=== PATIENT | female | born 1945 | race Caucasian/White ===

== ENCOUNTER → 2018-03-20 | Outpatient (CLI) | payer MEDICARE ==
[~2018-03-20] MED LIST: EXEM25TA PO; LETR2.5T2 PO; LOSA25TA14 PO; OMEP40CA2 PO; SERT50TA PO; VITA10002 PO; VITAD1000T PO
[2018-03-20 12:03] LABS: HEMATOCRIT 41.8 % (36.0-47.0); HEMOGLOBIN 13.5 g/dl (12.0-15.5); MEAN CORPUSCULAR HEMOGLOBIN 27.8 pg (27.0-33.0); MEAN CORPUSCULAR HGB CONC 32.3 g/dl (32.0-36.5); MEAN CORPUSCULAR VOLUME 86.2 fl (80.0-96.0); PLATELET COUNT, AUTOMATED 260 10^3/uL (150-450); RED BLOOD COUNT 4.85 10^6/uL (4.00-5.40); WHITE BLOOD COUNT 6.2 10^3/uL (4.0-10.0)
[2018-03-20 12:17] LABS: ALBUMIN 3.7 GM/DL (3.2-5.2); ALT/SGPT 24 U/L (12-78); BILIRUBIN,TOTAL 0.5 MG/DL (0.2-1.0); BLOOD UREA NITROGEN 12 MG/DL (7-18); CALCIUM LEVEL 8.9 MG/DL (8.8-10.2); CARBON DIOXIDE LEVEL 27 MEQ/L (21-32); CHLORIDE LEVEL 107 MEQ/L (98-107); CHOLESTEROL LEVEL 216 MG/DL (<200); CREATININE FOR GFR 0.81 MG/DL (0.55-1.30); GLOMERULAR FILTRATION RATE > 60.0 (>39); GLUCOSE, FASTING 88 MG/DL (70-100); HDL CHOLESTEROL 54 MG/DL (>40); LDL CHOLESTEROL 132 MG/DL (<100); NON-HDL-C 162 MG/DL; POTASSIUM SERUM 4.6 MEQ/L (3.5-5.1); SODIUM LEVEL 140 MEQ/L (136-145); TOTAL PROTEIN 6.7 GM/DL (6.4-8.2); TRIGLYCERIDES LEVEL 150 MG/DL (<150)
[2018-03-20 12:21] LABS: TOTAL 25(OH) VITAMIN D 22.8 NG/ML (30.0-100.0); VITAMIN B12 LEVEL 883 PG/ML (247-911)
== END ==
LOC: M WUC 09:05
PROVIDERS: ATTEND Nurse Practitioner Adult Health
DX: Z00.00 Encounter for general adult medical examination without abnormal findings (principal); Z98.84 Bariatric surgery status; I10 Essential (primary) hypertension; E55.9 Vitamin D deficiency, unspecified; Z79.899 Other long term (current) drug therapy

== ENCOUNTER → 2018-05-14 | Outpatient (CLI) | payer MEDICARE ==
--- NOTE | 2018-05-14 09:25 | REP ---
CHEST WALL ULTRASOUND: 05/14/2018. Clinical history: Chest wall swelling, status post bilateral mastectomy. Soft tissue chest wall evaluation just inferior to the clavicle where she noted swelling shows normal heterogeneous soft tissues without discrete mass, cyst, architectural distortion or skin thickening in the region below the clavicle. Scanning over the chest wall inferior to the axilla, there is a 9.8 x 6.5 x 3.6 mm lymph node with morphologic normal appearance of the hyperechoic fatty center and hypoechoic periphery. There are no other findings. Impression: 1. There is no soft tissue mass or other sonographic abnormality inferior to the clavicle in the region where the patient notes some swelling. 2. There is a 9.8 x 6.5 x 3.6 mm lymph node with normal sonographic morphology and blood flow from the hilus. No other finding. Electronically Signed by Ta Gauthier MD 05/14/2018 08:33 P
== END ==
LOC: M RAD 07:32
PROVIDERS: ATTEND Internal Medicine Medical Oncology
DX: R22.2 Localized swelling, mass and lump, trunk (principal); Z90.13 Acquired absence of bilateral breasts and nipples

== ENCOUNTER 2018-07-02 07:51 | Day surgery (SDC) | payer MEDICARE ==
[~2018-07-02] VITALS: Ht 162.6 cm; Wt 76.6 kg
[~2018-07-02 07:51] MED LIST changes: +NS 1,000 ML IV ONE; +SERT-141 PO; -SERT50TA PO
[2018-07-02] MEDS ORDERED: PROPOFOL 500 MG/50 ML VIAL As Ordered ONE (10:01)
[2018-07-02] MEDS ORDERED: LIDOCAINE 2% INJ 100 MG/5 ML SDV (FOR ANES.) As Ordered ONE (10:01)
[2018-07-02] MEDS ORDERED: fentaNYL 100 MCG/2 ML INJECTION (J3010) As Ordered ONE (10:01)
--- NOTE | 2018-07-02 10:04 | ROOR ---
Patient Name: Brittany Barrientos Procedure Date: 07/02/2018 9:14 AM Date of : 1945 Age: 73 Room: [facility] Gender: Female Note Status: Finalized Procedure: Upper GI endoscopy Indications: Surveillance for malignancy due to personal history of Alvarez's esophagus Providers: Miguelito Stevenson MD Referring MD: Arti RICKS NP Requesting Provider: Medicines: Monitored Anesthesia Care Complications: No immediate complications. Procedure: Pre-Anesthesia Assessment: - Prior to the procedure, a History and Physical was performed, and patient medications and allergies were reviewed. The patient is competent. The risks and benefits of the procedure and the sedation options and risks were discussed with the patient. All questions were answered and informed consent was obtained. Patient identification and proposed procedure were verified by the physician, the nurse and the anesthesiologist in the procedure room. Mental Status Examination: alert and oriented. Airway Examination: normal oropharyngeal airway and neck mobility. Respiratory Examination: clear to auscultation. CV Examination: normal. Prophylactic Antibiotics: The patient does not require prophylactic antibiotics. Prior Anticoagulants: The patient has taken no previous anticoagulant or antiplatelet agents. ASA Grade Assessment: II - A patient with mild systemic disease. After reviewing the risks and benefits, the patient was deemed in satisfactory condition to undergo the procedure. The anesthesia plan was to use monitored anesthesia care (MAC). Immediately prior to administration of medications, the patient was re-assessed for adequacy to receive sedatives. The heart rate, respiratory rate, oxygen saturations, blood pressure, adequacy of pulmonary ventilation, and response to care were monitored throughout the procedure. The physical status of the patient was re-assessed after the procedure. The Endoscope was introduced through the mouth, and advanced to the efferent jejunal loop. The upper GI endoscopy was accomplished without difficulty. The patient tolerated the procedure well. Findings: Two tongues of salmon-colored mucosa were present from 35 to 37 cm. The maximum longitudinal extent of these esophageal mucosal changes was 2 cm in length. Biopsies were taken with a cold forceps for histology. Verification of patient identification for the specimen was done by the physician and nurse using the patient's name, date and medical record number. 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 The gastrojejunal anastomosis was characterized by healthy appearing mucosa. This was traversed. The jejunojejunal anastomosis was characterized by healthy appearing mucosa. The xfdokkxa-lw-tdrlrlm limb was not examined as it could not be found. Patchy mild inflammation characterized by erythema and granularity was found in the gastric fundus. Biopsies were taken with a cold forceps for Helicobacter pylori testing. The examined jejunum was normal. Impression: - Proctor-colored mucosa suspicious for short-segment Alvarez's esophagus. Biopsied. - Malcom-en-Y gastrojejunostomy with gastrojejunal anastomosis characterized by healthy appearing mucosa. - Gastritis. Biopsied. - Normal examined jejunum. Recommendation: - Patient has a contact number available for emergencies. The signs and symptoms of potential delayed complications were discussed with the patient. Return to normal activities tomorrow. Written discharge instructions were provided to the patient. - Resume previous diet. - Continue present medications. 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 - Follow an antireflux regimen. - Await pathology results. - Repeat upper endoscopy in 3 years for surveillance. - Based on the biopsy results you will receive a phone call from GI clinic in 2-3 weeks to review the pathology results AND/OR your results will be faxed to your Primary care physician. - Return to primary care physician. Miguelito Stevenson MD Miguelito Stevenson MD 07/02/2018 10:04:27 AM Electronically signed by Miguelito Stevenson MD Number of Addenda: 0 Note Initiated On: 07/02/2018 9:14 AM Estimated Blood Loss: Estimated blood loss was minimal.
[2018-07-02 10:19] VITALS: BP 132/72
--- NOTE | 2018-07-02 11:13 | ROOR ---
Patient Name: Brittany Barrientos Procedure Date: 07/02/2018 9:14 AM Date of : 1945 Age: 73 Room: [facility] Gender: Female Note Status: Finalized Procedure: Colonoscopy Indications: Suspected Crohn's disease of the small bowel and colon Providers: Miguelito Stevenson MD Referring MD: Arti RICKS NP Requesting Provider: Medicines: Monitored Anesthesia Care Complications: No immediate complications. Procedure: Pre-Anesthesia Assessment: - Prior to the procedure, a History and Physical was performed, and patient medications and allergies were reviewed. The patient is competent. The risks and benefits of the procedure and the sedation options and risks were discussed with the patient. All questions were answered and informed consent was obtained. Patient identification and proposed procedure were verified by the physician, the nurse and the anesthesiologist in the procedure room. Mental Status Examination: alert and oriented. Airway Examination: normal oropharyngeal airway and neck mobility. Respiratory Examination: clear to auscultation. CV Examination: normal. Prophylactic Antibiotics: The patient does not require prophylactic antibiotics. Prior Anticoagulants: The patient has taken no previous anticoagulant or antiplatelet agents. ASA Grade Assessment: II - A patient with mild systemic disease. After reviewing the risks and benefits, the patient was deemed in satisfactory condition to undergo the procedure. The anesthesia plan was to use monitored anesthesia care (MAC). Immediately prior to administration of medications, the patient was re-assessed for adequacy to receive sedatives. The heart rate, respiratory rate, oxygen saturations, blood pressure, adequacy of pulmonary ventilation, and response to care were monitored throughout the procedure. The physical status of the patient was re-assessed after the procedure. The Colonoscope was introduced through the anus and advanced to the terminal ileum, with identification of the appendiceal orifice and IC valve. The colonoscopy was performed without difficulty. The patient tolerated the procedure well. The quality of the bowel preparation was good. The terminal ileum, ileocecal valve, appendiceal orifice, and rectum were photographed. Scope insertion time was 3 minutes. Scope withdrawal time was 9 minutes. The total duration of the procedure was 12 minutes. Findings: The perianal and digital rectal examinations were normal. The terminal ileum contained a few eight mm ulcers. No bleeding was present. No stigmata of recent bleeding were seen. Biopsies were taken with a cold forceps for histology. Verification of patient identification for the specimen was done by the physician and nurse using the patient's name, date and medical record number. Estimated blood loss was minimal. Four sessile polyps were found in the ascending colon. The polyps were 4 to 6 mm in size. These polyps were removed with a cold snare. Resection and retrieval were complete. Non-bleeding external and internal hemorrhoids were found during retroflexion. The hemorrhoids were medium-sized. Normal mucosa was found in the entire colon. Impression: - A few ulcers in the terminal ileum. Biopsied. - Four 4 to 6 mm polyps in the ascending colon, removed with a cold snare. Resected and retrieved. - Non-bleeding external and internal hemorrhoids. - Normal mucosa in the entire examined colon. Recommendation: - Patient has a contact number available for emergencies. The signs and symptoms of potential delayed complications were discussed with the patient. Return to normal activities tomorrow. Written discharge instructions were provided to the patient. - Resume previous diet. - Continue present medications. - Await pathology results. - Repeat colonoscopy in 3 - 5 years for surveillance based on pathology results. - Based on the biopsy results you will receive a phone call from GI clinic in 2-3 weeks to review the pathology results AND/OR your results will be faxed to your Primary care physician. - Return to primary care physician. Miguelito Stevenson MD Miguelito Stevenson MD 07/02/2018 11:13:09 AM Electronically signed by Miguelito Stevenson MD Number of Addenda: 0 Note Initiated On: 07/02/2018 9:14 AM Estimated Blood Loss: Estimated blood loss was minimal.
== END 2018-07-02 10:40 | disposition home or self-care (01) ==
LOC: M OPP 07:51
PROVIDERS: ATTEND Internal Medicine Gastroenterology
DX: K63.3 Ulcer of intestine (principal); D12.2 Benign neoplasm of ascending colon; K64.8 Other hemorrhoids; K29.70 Gastritis, unspecified, without bleeding; Z98.0 Intestinal bypass and anastomosis status; K22.70 Barrett's esophagus without dysplasia; Z79.899 Other long term (current) drug therapy; Z87.891 Personal history of nicotine dependence; Z88.5 Allergy status to narcotic agent; Z88.8 Allergy status to other drugs, medicaments and biological substances; Z91.048 Other nonmedicinal substance allergy status
CPT/HCPCS: 43239; 45380; 45385; 88305; J3010

== ENCOUNTER → 2018-07-19 | Outpatient (CLI) | payer MEDICARE ==
[~2018-07-19] MED LIST changes: -NS 1,000 ML IV ONE
--- NOTE | 2018-08-02 10:22 | DEXA ---
AP SPINE L1 - L4 1.189 0.0 1.7 LT FEMUR TOTAL Bilateral hip replacement. LT NECK RT FEMUR TOTAL RT NECK TOTAL BODY TOTAL LEFT FOREARM RADIUS 33% 0.646 -2.6 0.1 COMMENTS: Normal bone densitometry of the spine. 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 FOLLOW-UP: Recommendation for the next bone density exam: 2 years. KENNY
== END ==
LOC: M WHC 13:54
PROVIDERS: ATTEND Internal Medicine Medical Oncology
DX: M81.0 Age-related osteoporosis without current pathological fracture (principal)

== ENCOUNTER → 2019-10-23 | Outpatient (CLI) | payer MEDICARE ==
[~2019-10-23] MED LIST changes: +BUPR150T3 PO; +CHOL100029 PO; +CYAN100049 PO; +D 10TAB2 PO; +FLUT1BLS2 PO; +GABA-843 PO; +LOSA50TA88 PO; -OMEP40CA2 PO; +OMEP40CA97 PO; -VITA10002 PO; +VITA100020 PO; -VITAD1000T PO
--- NOTE | 2019-11-27 08:10 | REP ---
RIGHT RIB SERIES WITH PA VIEW OF THE CHEST COMPARISON: None. FINDINGS: The frontal view of the chest shows the lung ralph to be clear. The heart is not enlarged and the pleural angles are sharp. Multiple views of the right ribs show no evidence of an acute fracture or destructive osseous lesion. IMPRESSION: Negative right rib series. MTDD
--- NOTE | 2019-11-27 08:11 | REP ---
ULTRASOUND OF THE RIGHT CHEST WALL FOR PAIN Delay in reporting results from hospital computer system malfunction from malware/ ransomware. Patient had breast cancer three years ago and has had bilateral mastectomies. She complains of two areas of pain in the right chest wall along the mastectomy incision line. One area of pain is along the lateral chest wall over the ribs and the second area is anteromedial to the incision near the sternum. In the lateral chest wall a small lymph node measuring 7.5 x 3.7 x 5.1 mm is noted medial to the area of pain. This lymph node is normal size. No abnormality is identified in the area of pain. In the area anteriomedial to the incision near the sternum a normal size lymph node measuring 3.6 x 3.5 x 3.5 mm is noted. that is slightly lateral to the area of pain. This lymph node is normal size. No abnormality is identified in the area of pain. A subcutaneous vascular structure is incidentally identified. IMPRESSION: In the lateral chest wall a normal size lymph node is identified medial to the area of pain. No other abnormalities are identified. In the anterior chest wall a normal size lymph node is identified lateral to the area of pain. No other abnormalities are identified. MTDD
== END ==
LOC: M RAD 12:25
PROVIDERS: ATTEND Internal Medicine Hematology & Oncology
DX: R07.9 Chest pain, unspecified (principal)

== ENCOUNTER → 2019-12-23 | Outpatient (CLI) | payer MEDICARE ==
--- NOTE | 2019-12-23 11:52 | REPPI ---
INDICATION: RIGHT HIP PAIN. COMPARISON: None. FINDINGS: Two views of the right femur show a total hip prosthetic device in place. The femoral and acetabular components are well seated and well approximated with near anatomical alignment. There is no acute fracture, dislocation, or subluxation. 2 dedicated views of the right hip show the femoral and acetabular components of the hip prosthesis to be well seated and well approximated. There is no acute fracture, dislocation, or subluxation. IMPRESSION: No acute abnormality is noted. Findings as described above. <Electronically signed by Jake Patel > 12/23/19 [id number]
== END ==
LOC: M PLAIMG 11:27
PROVIDERS: ATTEND Nurse Practitioner Adult Health
DX: M25.551 Pain in right hip (principal); Z96.641 Presence of right artificial hip joint

== ENCOUNTER → 2020-06-23 | Outpatient (CLI) | payer MEDICARE ==
[~2020-06-23] MED LIST changes: +BUPR150T12 PO; -BUPR150T3 PO; +COVI30VI IM; +GABA-282 PO; -GABA-843 PO
--- NOTE | 2020-06-23 09:22 | REPPI ---
INDICATION: M54.2 NECK PAIN COMPARISON: None. TECHNIQUE: AP, lateral, flexion/extension, bilateral oblique, swimmer's and open-mouth views. FINDINGS: Age-related osteopenia is appreciated. Alignment is maintained and there is no evidence for acute fracture/compression injury or subluxation. Open mouth view demonstrates normal odontoid process. Moderate to advanced degenerative changes include endplate sclerosis, disc space narrowing, osteophytosis and facet hypertrophy primarily involving C4-5 through C7-T1. IMPRESSION: 1. Generalized age-related osteopenia and advanced multilevel degenerative changes. <Electronically signed by Tyrell Em > 06/23/20 [id number]
== END ==
LOC: M PLAIMG 08:46
PROVIDERS: ATTEND Nurse Practitioner Adult Health
DX: M54.2 Cervicalgia (principal)

== ENCOUNTER → 2020-10-27 | Outpatient (CLI) | payer MEDICARE, OTHER ==
[~2020-10-27] MED LIST changes: +OMEP40CA4 PO; -OMEP40CA97 PO
[2020-10-27 10:35] LABS: HEMATOCRIT 41.4 % (36.0-47.0); HEMOGLOBIN 13.1 g/dl (12.0-15.5); MEAN CORPUSCULAR HEMOGLOBIN 27.8 pg (27.0-33.0); MEAN CORPUSCULAR HGB CONC 31.6 g/dl (32.0-36.5); MEAN CORPUSCULAR VOLUME 87.9 fl (80.0-96.0); PLATELET COUNT, AUTOMATED 332 10^3/uL (150-450); RED BLOOD COUNT 4.71 10^6/uL (4.00-5.40); WHITE BLOOD COUNT 6.9 10^3/uL (4.0-10.0)
[2020-10-27 11:28] LABS: ALBUMIN 3.5 GM/DL (3.2-5.2); ALT/SGPT 26 U/L (12-78); BILIRUBIN,TOTAL 0.4 MG/DL (0.2-1.0); BLOOD UREA NITROGEN 18 MG/DL (7-18); CALCIUM LEVEL 9.1 MG/DL (8.8-10.2); CARBON DIOXIDE LEVEL 25 MEQ/L (21-32); CHLORIDE LEVEL 110 MEQ/L (98-107); CHOLESTEROL LEVEL 209 MG/DL (<200); CHOLESTEROL RISK RATIO 4.098 (<5); CREATININE FOR GFR 0.79 MG/DL (0.55-1.30); FERRITIN 15 NG/ML (8-252); GLOMERULAR FILTRATION RATE > 60.0 (>39); GLUCOSE, FASTING 92 MG/DL (70-100); HDL CHOLESTEROL 51 MG/DL (>40); IRON (FE) 77 UG/DL (50-170); LDL CHOLESTEROL 123 MG/DL (<100); NON-HDL-C 158 MG/DL; PERCENT SATURATION 18.1 % (13.2-45.0); POTASSIUM SERUM 4.6 MEQ/L (3.5-5.1); SODIUM LEVEL 140 MEQ/L (136-145); TOTAL 25(OH) VITAMIN D 28.1 NG/ML (30.0-100.0); TOTAL IRON BINDING CAPACITY 426 UG/DL (250-450); TOTAL PROTEIN 7.2 GM/DL (6.4-8.2); TRIGLYCERIDES LEVEL 177 MG/DL (<150)
[2020-10-27 11:40] LABS: VITAMIN B12 LEVEL > 2000 PG/ML (247-911)
[2020-10-27 11:55] LABS: HEMOGLOBIN A1c 6.4 %
== END ==
LOC: M WUC 08:13
PROVIDERS: ATTEND Nurse Practitioner Adult Health
DX: Z00.00 Encounter for general adult medical examination without abnormal findings (principal); E53.8 Deficiency of other specified B group vitamins; Z98.84 Bariatric surgery status; E55.9 Vitamin D deficiency, unspecified; Z79.899 Other long term (current) drug therapy

== ENCOUNTER → 2020-12-06 | Outpatient (CLI) | payer OTHER ==
[~2020-12-06] MED LIST changes: +ACET650T61 PA; +CYCL5TAB PO
--- NOTE | 2020-12-07 21:16 | REPVR ---
PROCEDURE INFORMATION: Exam: MR Cervical Spine Without Contrast Exam date and time: 12/06/2020 3:44 PM Age: 75 years old Clinical indication: Neck pain; Additional info: Cervicalgia TECHNIQUE: Imaging protocol: Multiplanar magnetic resonance images of the cervical spine without contrast. COMPARISON: CR SPINE CERVICAL COMPLETE 06/23/2020 9:05 AM FINDINGS: Vertebrae: Normal vertebral body alignment. Advanced multilevel facet DJD. Multilevel endplate degenerative changes with mild reactive marrow edema. There is marrow edema in the right C1 and C2 lateral masses extending into the C2 vertebral body and base of the odontoid. A discrete fracture line is not identified. Normal craniocervical junction alignment. Mild degenerative changes in the C1-C2 joint space. Spinal cord: Normal signal. No cord compression. No syrinx or mass. C2-C3: No disc herniation or spinal stenosis. Moderate left foraminal stenosis. C3-C4: Disc degeneration with small posterior disc bulge. No disc herniation or spinal stenosis. No significant foraminal stenosis. C4-C5: Disc degeneration with disc space narrowing and broad based posterior disc bulge. Borderline central spinal stenosis without cord compression. Severe left foraminal stenosis. Moderate right foraminal stenosis. C5-C6: Disc degeneration with disc space narrowing and broad based posterior disc bulge. Mild central spinal stenosis without cord compression. Severe left foraminal stenosis. Mild right foraminal stenosis. C6-C7: Disc degeneration with disc space narrowing and broad based posterior disc bulge. Borderline spinal stenosis without cord compression. Mild foraminal stenosis. C7-T1: Disc degeneration with disc space narrowing and broad based posterior disc bulge. Mild foraminal stenosis. Soft tissues: Unremarkable. Vertebral arteries: Expected flow voids in the vertebral arteries. IMPRESSION: 1. Marrow edema in the left C1 and C2 lateral masses extending into the base of the odontoid, possibly degenerative. No discrete fracture or malalignment is seen. This is not imaged in its entirety however. Repeat cervical spine MRI extending through the craniocervical junction or follow-up cervical spine CT is recommended. 2. Advanced discogenic and facet spondylosis as above. Borderline to mild central spinal stenosis from C4-C5 to C6-C7 without cord compression. 3. Multilevel foraminal stenosis. Electronically signed by: Wilton Childs On 12/07/2020 21:16:34 PM
== END ==
LOC: M PLAIMG 15:01
PROVIDERS: ATTEND Orthopaedic Surgery
DX: M48.02 Spinal stenosis, cervical region (principal); M54.2 Cervicalgia

== ENCOUNTER → 2021-03-09 | Outpatient (CLI) | payer OTHER ==
[2021-03-09 10:55] LABS: ALBUMIN 3.8 GM/DL (3.2-5.2); ALT/SGPT 33 U/L (12-78); BILIRUBIN,TOTAL 0.5 MG/DL (0.2-1.0); BLOOD UREA NITROGEN 20 MG/DL (7-18); CALCIUM LEVEL 9.4 MG/DL (8.8-10.2); CARBON DIOXIDE LEVEL 27 MEQ/L (21-32); CHLORIDE LEVEL 106 MEQ/L (98-107); CHOLESTEROL LEVEL 124 MG/DL (<200); CHOLESTEROL RISK RATIO 2.638 (<5); CREATININE FOR GFR 0.73 MG/DL (0.55-1.30); GLOMERULAR FILTRATION RATE > 60.0 (>39); GLUCOSE, FASTING 97 MG/DL (70-100); HDL CHOLESTEROL 47 MG/DL (>40); LDL CHOLESTEROL 45 MG/DL (<100); NON-HDL-C 77 MG/DL; POTASSIUM SERUM 4.4 MEQ/L (3.5-5.1); SODIUM LEVEL 139 MEQ/L (136-145); TOTAL PROTEIN 7.4 GM/DL (6.4-8.2); TRIGLYCERIDES LEVEL 158 MG/DL (<150)
== END ==
LOC: M WUC 08:20
PROVIDERS: ATTEND Physician Assistant
DX: E78.5 Hyperlipidemia, unspecified (principal)

== ENCOUNTER → 2021-06-07 | Outpatient (CLI) | payer MEDICARE ==
[~2021-06-07] MED LIST changes: +GABA-1171 PO; +LOSA25TA13 PO; -LOSA25TA14 PO; +LOSA50TA28 PO; -LOSA50TA88 PO; +PENT400T47 PO; +ROSU5TAB5 PO; +VITA400C50 PO
== END ==
LOC: M WHC 10:52
PROVIDERS: ATTEND Internal Medicine Hematology & Oncology
DX: M81.0 Age-related osteoporosis without current pathological fracture (principal)

== ENCOUNTER → 2021-07-25 | Outpatient (CLI) | payer MEDICARE, OTHER ==
[2021-07-25 14:28] LABS: BLOOD UREA NITROGEN 15 MG/DL (7-18); CALCIUM LEVEL 9.3 MG/DL (8.8-10.2); CARBON DIOXIDE LEVEL 28 MEQ/L (21-32); CHLORIDE LEVEL 107 MEQ/L (98-107); CREATININE FOR GFR 0.82 MG/DL (0.55-1.30); GLOMERULAR FILTRATION RATE > 60.0 (>39); GLUCOSE, FASTING 92 MG/DL (70-100); POTASSIUM SERUM 4.4 MEQ/L (3.5-5.1); SODIUM LEVEL 140 MEQ/L (136-145)
== END ==
LOC: M PLALAB 10:33
PROVIDERS: ATTEND Nurse Practitioner Adult Health
DX: R25.2 Cramp and spasm (principal)

== ENCOUNTER → 2021-07-27 | Outpatient (CLI) | payer MEDICARE | LOC: M SOG 09:02 | PROVIDERS: ATTEND Orthopaedic Surgery Adult Reconstructive Orthopaedic Surgery | DX: M25.551 Pain in right hip (principal) ==

== ENCOUNTER 2021-09-03 12:39 | Emergency (ER) | payer MEDICARE ==
[~2021-09-03] VITALS: Ht 160 cm; Wt 83.1 kg
[2021-09-03] MEDS ORDERED: KETOROLAC 30 MG/ML 1ML VIAL IV ONE (13:00)
[2021-09-03 14:27] LABS: BASO % 0.3 % (0.0-1.0); EOS # 0.1 10^3/uL (0.0-0.5); EOS % 1.2 % (0.0-3.0); HEMATOCRIT 36.4 % (36.0-47.0); HEMOGLOBIN 11.7 g/dl (12.0-15.5); LYMPH # 1.8 10^3/uL (1.5-5.0); LYMPH % 23.3 % (24.0-44.0); MEAN CORPUSCULAR HEMOGLOBIN 28.6 pg (27.0-33.0); MEAN CORPUSCULAR HGB CONC 32.1 g/dl (32.0-36.5); MONO # 0.6 10^3/uL (0.0-0.8); MONO % 7.8 % (2.0-8.0); NEUTROPHILS # 5.2 10^3/uL (1.5-8.5); NEUTROPHILS % 67.1 % (36.0-66.0); PLATELET COUNT, AUTOMATED 315 10^3/uL (150-450); RED BLOOD COUNT 4.09 10^6/uL (4.00-5.40); WHITE BLOOD COUNT 7.7 10^3/uL (4.0-10.0)
[2021-09-03 16:17] LABS: APPEARANCE, URINE CLEAR (CLEAR); BACTERIA, URINE AUTO NEGATIVE (NEGATIVE); BILIRUBIN, URINE AUTO NEGATIVE (NEGATIVE); BLOOD, URINE BLOOD NEGATIVE (NEGATIVE); COLOR, URINE YELLOW (YELLOW); GLUCOSE, URINE (UA) AUTO NEGATIVE (NEGATIVE); KETONE, URINE AUTO NEGATIVE (NEGATIVE); LEUKOCYTE ESTERASE, URINE AUTO 1+ (NEGATIVE); MUCUS, URINE SMALL (NEGATIVE); NITRITE, URINE AUTO NEGATIVE (NEGATIVE); PROTEIN, URINE AUTO NEGATIVE (NEGATIVE); RBC, URINE AUTO 0 /HPF (0-3); SPECIFIC GRAVITY URINE AUTO 1.013 (1.002-1.035); SQUAMOUS EPITHELIAL CELL UR AU 0 /HPF (0-6); UROBILINOGEN, URINE AUTO 0.2 mg/dL (0.0-2.0); WBC, URINE AUTO 16 /HPF (0-3)
[2021-09-03 16:35] VITALS: BP 134/81
== END 2021-09-03 16:36 | disposition home or self-care (01) ==
LOC: M ED 12:39
DX: N20.1 Calculus of ureter (principal); I10 Essential (primary) hypertension; K50.90 Crohn's disease, unspecified, without complications; Z87.891 Personal history of nicotine dependence; Z91.048 Other nonmedicinal substance allergy status; Z88.5 Allergy status to narcotic agent; Z88.4 Allergy status to anesthetic agent; Z79.899 Other long term (current) drug therapy
CPT/HCPCS: 74176; 80047; 81001; 85025; 96374; 99283; J1885

== ENCOUNTER → 2021-10-27 | Outpatient (CLI) | payer MEDICARE | LOC: M SOG 08:18 | PROVIDERS: ATTEND Orthopaedic Surgery Adult Reconstructive Orthopaedic Surgery | DX: Z96.643 Presence of artificial hip joint, bilateral (principal) ==

== ENCOUNTER → 2021-12-02 | Outpatient (REF) | payer MEDICARE ==
[2021-12-02 10:35] LABS: CHOLESTEROL RISK RATIO 3.116 (<5)
== END ==
LOC: M LABWUC 09:25
PROVIDERS: ATTEND Physician Assistant
DX: E78.49 Other hyperlipidemia (principal)

== ENCOUNTER → 2021-12-15 | Outpatient (CLI) | payer MEDICARE | LOC: M WHC 09:21 | PROVIDERS: ATTEND Internal Medicine Medical Oncology | DX: R07.89 Other chest pain (principal); Z85.3 Personal history of malignant neoplasm of breast ==

== ENCOUNTER → 2022-01-13 | Outpatient (CLI) | payer MEDICARE | LOC: M PLAIMG 11:05 | PROVIDERS: ATTEND Internal Medicine | DX: M47.892 Other spondylosis, cervical region (principal) ==

== ENCOUNTER → 2022-01-30 | Outpatient (CLI) | payer MEDICARE | LOC: M PLAIMG 15:34 | PROVIDERS: ATTEND Internal Medicine Critical Care Medicine | DX: R05.3 Chronic cough (principal) ==

== ENCOUNTER → 2022-02-10 | Outpatient (REF) | payer MEDICARE | LOC: M LAB REF 18:54 | PROVIDERS: ATTEND Physician Assistant | DX: M54.50 Low back pain, unspecified (principal); Z79.899 Other long term (current) drug therapy ==

== ENCOUNTER → 2022-03-30 | Outpatient (CLI) | payer MEDICARE | LOC: M PLAIMG 06:55 | PROVIDERS: ATTEND Nurse Practitioner Adult Health | DX: M46.94 Unspecified inflammatory spondylopathy, thoracic region (principal); M51.26 Other intervertebral disc displacement, lumbar region; M51.36 Other intervertebral disc degeneration, lumbar region; M41.24 Other idiopathic scoliosis, thoracic region ==

== ENCOUNTER → 2022-04-17 | Outpatient (CLI) | payer MEDICARE | LOC: M SOG 07:51 | PROVIDERS: ATTEND Orthopaedic Surgery Adult Reconstructive Orthopaedic Surgery | DX: Z96.643 Presence of artificial hip joint, bilateral (principal) ==

== ENCOUNTER → 2022-05-01 | Outpatient (CLI) | payer MEDICARE ==
[2022-05-01 09:30] LABS: HEMATOCRIT 40.5 % (36.0-47.0); HEMOGLOBIN 12.8 g/dl (12.0-15.5); MEAN CORPUSCULAR HEMOGLOBIN 27.8 pg (27.0-33.0); MEAN CORPUSCULAR HGB CONC 31.6 g/dl (32.0-36.5); PLATELET COUNT, AUTOMATED 356 10^3/uL (150-450); WHITE BLOOD COUNT 6.8 10^3/uL (4.0-10.0)
[2022-05-01 09:53] LABS: HEMOGLOBIN A1c 5.8 % (4.0-6.0)
[2022-05-01 10:06] LABS: CHOLESTEROL RISK RATIO 2.83 (<5); HDL CHOLESTEROL 59.3 MG/DL (>40); LDL CHOLESTEROL 81.1 MG/DL (<100)
[2022-05-01 10:09] LABS: THYROID STIMULATING HORMONE 2.749 uIU/ML (0.55-4.78); TOTAL 25(OH) VITAMIN D 32.5 NG/ML (20.0-100.0)
== END ==
LOC: M WUC 08:42
PROVIDERS: ATTEND Nurse Practitioner Adult Health
DX: E55.9 Vitamin D deficiency, unspecified (principal); Z98.84 Bariatric surgery status; E53.8 Deficiency of other specified B group vitamins; E78.2 Mixed hyperlipidemia; Z79.899 Other long term (current) drug therapy

== ENCOUNTER 2022-05-22 18:41 | Observation (INO) | payer MEDICARE ==
[~2022-05-22] VITALS: Ht 162.6 cm; Wt 78.2 kg
[~2022-05-22 18:41] MED LIST changes: -ACET650T61 PO; -OMEP40CA5 PO; -VITA100093 PO
[2022-05-22] MEDS ORDERED: NS 1,000 ML IV ONE (19:35)
[2022-05-22 20:40] LABS: BASO % 0.1 % (0.0-1.0); EOS % 0.2 % (0.0-3.0); HEMATOCRIT 38.8 % (36.0-47.0); HEMOGLOBIN 12.1 g/dl (12.0-15.5); LYMPH % 7.2 % (24.0-44.0); MEAN CORPUSCULAR HEMOGLOBIN 27.6 pg (27.0-33.0); MEAN CORPUSCULAR HGB CONC 31.2 g/dl (32.0-36.5); MEAN CORPUSCULAR VOLUME 88.4 fl (80.0-96.0); MONO # 0.8 10^3/uL (0.0-0.8); MONO % 5.9 % (2.0-8.0); NEUTROPHILS # 11.5 10^3/uL (1.5-8.5); NEUTROPHILS % 86.2 % (36.0-66.0); PLATELET COUNT, AUTOMATED 327 10^3/uL (150-450); RED BLOOD COUNT 4.39 10^6/uL (4.00-5.40); WHITE BLOOD COUNT 13.4 10^3/uL (4.0-10.0)
[2022-05-22 20:55] LABS: INR 1.04; PROTHROMBIN TIME 13.8 SECONDS (12.5-14.5)
[2022-05-22 20:56] LABS: PARTIAL THROMBOPLASTIN TIME 23.9 SECONDS (24.8-34.2)
[2022-05-22 21:03] LABS: CK-MB VALUE MASS 1.2 NG/ML (<3.6); ETHYL ALCOHOL (ETHANOL) < 0.003 % (0.000-0.010)
[2022-05-22 21:05] LABS: CPK CREATINE PHOSPHOKINASE 76 U/L (34-145); MB/CK RELATIVE INDEX 1.57 (< OR =4)
[2022-05-22 21:05] LABS: ALBUMIN 3.5 G/DL (3.2-5.2); BILIRUBIN,DIRECT 0.2 MG/DL (<0.4); BILIRUBIN,TOTAL 0.5 MG/DL (0.3-1.2); TOTAL PROTEIN 6.4 G/DL (5.7-8.2)
[2022-05-22 21:07] LABS: FREE T4 1.07 NG/DL (0.89-1.76)
[2022-05-22 21:11] LABS: RSV AMPLIFICATION NEGATIVE (NEGATIVE)
[2022-05-22 21:43] LABS: BLOOD UREA NITROGEN 23 MG/DL (9-23); CALCIUM LEVEL 8.9 MG/DL (8.3-10.6); CARBON DIOXIDE LEVEL 24 MMOL/L (20-31); CHLORIDE LEVEL 109 MMOL/L (98-107); CREATININE FOR GFR 0.82 MG/DL (0.55-1.30); GLOMERULAR FILTRATION RATE > 60.0 (>39); GLUCOSE, FASTING 109 MG/DL (74-106); MAGNESIUM LEVEL 1.6 MG/DL (1.8-2.4); POTASSIUM SERUM 3.9 MMOL/L (3.5-5.1); SODIUM LEVEL 141 MMOL/L (136-145)
[2022-05-22] MEDS ORDERED: OMEP40CA5 PO (22:55)
[2022-05-22] MEDS ORDERED: ACET650T61 PO (22:55)
[2022-05-22] MEDS ORDERED: LOSA25TA13 PO (22:55)
[2022-05-22] MEDS ORDERED: LOSA50TA28 PO (22:55)
[2022-05-22] MEDS ORDERED: VITA100093 PO (22:55)
[2022-05-22] MEDS ORDERED: MAG SULF 1GM/100ML (MAG RUN) 1 GM in IV 1 EA IV ONE (23:00)
[2022-05-22] MEDS ORDERED: HOME MED LIST COMPLETE! XX SCH (23:00)
[2022-05-22 23:34] LABS: AMPHETAMINES LEVEL URINE NEGATIVE (NEGATIVE); BARBITURATES URINE NEGATIVE (NEGATIVE); BENZODIAZEPINES URINE NEGATIVE (NEGATIVE); COCAINE METABOLITE URINE NEGATIVE (NEGATIVE); METHADONE URINE NEGATIVE (NEGATIVE); OPIATES URINE NEGATIVE (NEGATIVE); PHENCYCLIDINE URINE NEGATIVE (NEGATIVE)
[2022-05-22 23:35] LABS: CANNABINOIDS URINE POSITIVE (NEGATIVE)
[2022-05-23] MEDS ORDERED: ACETAMINOPHEN TAB 650MG DOSE (2X325MG) PO PRN (00:20)
[2022-05-23 01:51] VITALS: BP_SYST 140; BP_SYST 141; BP_SYST 152; BP_DIAS 68; BP_DIAS 69; BP_DIAS 80
[2022-05-23 06:00] VITALS: BP 120/66
[2022-05-23 06:57] LABS: BLOOD UREA NITROGEN 18 MG/DL (9-23); CALCIUM LEVEL 8.7 MG/DL (8.3-10.6); CARBON DIOXIDE LEVEL 24 MMOL/L (20-31); CHLORIDE LEVEL 110 MMOL/L (98-107); CREATININE FOR GFR 0.66 MG/DL (0.55-1.30); GLOMERULAR FILTRATION RATE > 60.0 (>39); GLUCOSE, FASTING 85 MG/DL (74-106); POTASSIUM SERUM 4.1 MMOL/L (3.5-5.1); SODIUM LEVEL 141 MMOL/L (136-145)
[2022-05-23] MEDS ORDERED: ADVAIR HFA 115/21MCG INHALER INH SCH (08:00)
[2022-05-23] MEDS ORDERED: OMEPRAZOLE 20MG CAP PO SCH (09:00)
[2022-05-23] MEDS ORDERED: PENTOXIFYLLINE 400MG TAB PO SCH (09:00)
[2022-05-23 14:00] VITALS: BP 124/62
[2022-05-24] MEDS ORDERED: PREVNAR-20 VACCINE 0.5ML SYRINGE IM.IMMUN ONE (09:00)
== END 2022-05-23 17:22 | disposition home or self-care (01) ==
LOC: M ED 18:41 → M ED INP 18:42 → UNDOADMOB 05-23 00:04 → M ED INP 05-23 00:04 → M MSPAV 05-23 01:45 → M ED INP 05-23 01:45 → UNDODISOB 05-23 17:22
PROVIDERS: ADMIT Internal Medicine; ATTEND Internal Medicine Nephrology
DX: I95.1 Orthostatic hypotension (principal); E86.0 Dehydration; I10 Essential (primary) hypertension; E78.5 Hyperlipidemia, unspecified; E83.42 Hypomagnesemia; E55.9 Vitamin D deficiency, unspecified; M81.0 Age-related osteoporosis without current pathological fracture; F40.248 Other situational type phobia; Z87.891 Personal history of nicotine dependence; Z79.899 Other long term (current) drug therapy; Z88.5 Allergy status to narcotic agent; Z88.8 Allergy status to other drugs, medicaments and biological substances
CPT/HCPCS: 36415; 70450; 71045; 72125; 80048; 80076; 80307; 81001; 82077; 82550; 82553; 83605; 83735; 84439; 84443; 84484; 85025; 85610; 85730; 86850; 86900; 86901; 87040; 87086; 87631; 93005; 93041; 93306; 93880; 94640; 94760; 96361; 96374; 99285; G0378

== ENCOUNTER → 2022-05-22 | Outpatient (CLI) | payer MEDICARE ==
[~2022-05-22] MED LIST changes: +ACET650T61 PO; +OMEP40CA5 PO; +VITA100093 PO
== END ==
LOC: M PLARAD 14:52
PROVIDERS: ATTEND Nurse Practitioner Adult Health
DX: G89.28 Other chronic postprocedural pain (principal); R63.4 Abnormal weight loss; Z85.3 Personal history of malignant neoplasm of breast; C44.311 Basal cell carcinoma of skin of nose
CPT/HCPCS: 78815; A9552

== ENCOUNTER 2022-08-15 10:15 | Day surgery (SDC) | payer MEDICARE ==
[~2022-08-15] VITALS: Ht 162.6 cm; Wt 75.7 kg
[~2022-08-15 10:15] MED LIST changes: +ACET650T61 PO; +EZET10TA21 PO; +NS 1,000 ML IV ONE; +OMEP40CA5 PO; +VITA100093 PO
[2022-08-15] MEDS ORDERED: propofoL 200 MG/20 ML VIAL As Ordered ONE (11:52)
[2022-08-15] MEDS ORDERED: LIDOCAINE 2% 100MG/5ML SDV (FOR ANES.) As Ordered ONE (11:52)
[2022-08-15 13:13] VITALS: BP 179/77; TEMP 96.4; O2SAT 95
== END 2022-08-15 13:12 | disposition home or self-care (01) ==
LOC: M OPP 10:15
PROVIDERS: ATTEND Internal Medicine Gastroenterology
DX: Z86.010 Personal history of colon polyps (principal); K63.5 Polyp of colon; K21.00 Gastro-esophageal reflux disease with esophagitis, without bleeding; K22.70 Barrett's esophagus without dysplasia; K57.30 Diverticulosis of large intestine without perforation or abscess without bleeding; K64.8 Other hemorrhoids; Z98.0 Intestinal bypass and anastomosis status; I10 Essential (primary) hypertension; E78.5 Hyperlipidemia, unspecified; K76.0 Fatty (change of) liver, not elsewhere classified; M19.90 Unspecified osteoarthritis, unspecified site; F41.9 Anxiety disorder, unspecified; F32.A Depression, unspecified; K50.90 Crohn's disease, unspecified, without complications; Z80.3 Family history of malignant neoplasm of breast; Z92.21 Personal history of antineoplastic chemotherapy; Z92.3 Personal history of irradiation; Z96.643 Presence of artificial hip joint, bilateral; Z88.5 Allergy status to narcotic agent; Z88.8 Allergy status to other drugs, medicaments and biological substances; Z79.899 Other long term (current) drug therapy; Z80.8 Family history of malignant neoplasm of other organs or systems; Z80.0 Family history of malignant neoplasm of digestive organs; Z80.43 Family history of malignant neoplasm of testis; Z80.42 Family history of malignant neoplasm of prostate; Z80.52 Family history of malignant neoplasm of bladder; Z82.49 Family history of ischemic heart disease and other diseases of the circulatory system

== ENCOUNTER → 2022-11-02 | Outpatient (CLI) | payer MEDICARE ==
[~2022-11-02] MED LIST changes: -NS 1,000 ML IV ONE
[2022-11-02 11:24] LABS: HEMATOCRIT 41.3 % (36.0-47.0); HEMOGLOBIN 12.6 g/dl (12.0-15.5); MEAN CORPUSCULAR HEMOGLOBIN 26.3 pg (27.0-33.0); MEAN CORPUSCULAR HGB CONC 30.5 g/dl (32.0-36.5); PLATELET COUNT, AUTOMATED 349 10^3/uL (150-450); WHITE BLOOD COUNT 9.9 10^3/uL (4.0-10.0)
[2022-11-02 11:58] LABS: FERRITIN 7.2 NG/ML (7.3-270.7); THYROID STIMULATING HORMONE 2.995 uIU/ML (0.55-4.78); TOTAL 25(OH) VITAMIN D 36.3 NG/ML (20.0-100.0)
[2022-11-02 12:06] LABS: ALBUMIN 3.7 G/DL (3.2-5.2); ALKALINE PHOSPHATASE 102 U/L (46-116); ALT/SGPT 39 U/L (7.0-40); AST/SGOT 33 U/L (<34); BILIRUBIN,TOTAL 0.5 MG/DL (0.3-1.2); BLOOD UREA NITROGEN 14 MG/DL (9-23); CALCIUM LEVEL 9.2 MG/DL (8.3-10.6); CARBON DIOXIDE LEVEL 25 MMOL/L (20-31); CHLORIDE LEVEL 106 MMOL/L (98-107); CHOLESTEROL LEVEL 119 MG/DL (<200); CREATININE FOR GFR 0.71 MG/DL (0.55-1.30); GLOMERULAR FILTRATION RATE > 60.0 (>39); GLUCOSE, FASTING 92 MG/DL (74-106); HDL CHOLESTEROL 59.4 MG/DL (>40); LDL CHOLESTEROL 39.6 MG/DL (<100); NON-HDL-C 59.6 MG/DL; POTASSIUM SERUM 4.1 MMOL/L (3.5-5.1); SODIUM LEVEL 142 MMOL/L (136-145); TOTAL PROTEIN 6.9 G/DL (5.7-8.2); TRIGLYCERIDES LEVEL 100 MG/DL (<150)
== END ==
LOC: M WUC 08:00
PROVIDERS: ATTEND Nurse Practitioner Adult Health
DX: Z00.00 Encounter for general adult medical examination without abnormal findings (principal); Z98.84 Bariatric surgery status; E55.9 Vitamin D deficiency, unspecified; I10 Essential (primary) hypertension

== ENCOUNTER 2023-02-23 23:55 | Emergency (ER) | payer MEDICARE ==
[~2023-02-23] VITALS: Ht 162.6 cm; Wt 71.3 kg
[2023-02-24 00:39] LABS: BASO % 0.2 % (0.0-1.0); EOS # 0.1 10^3/uL (0.0-0.5); EOS % 0.8 % (0.0-3.0); HEMATOCRIT 36.9 % (36.0-47.0); HEMOGLOBIN 11.8 g/dl (12.0-15.5); LYMPH # 1.9 10^3/uL (1.5-5.0); LYMPH % 23.4 % (24.0-44.0); MEAN CORPUSCULAR HEMOGLOBIN 27.4 pg (27.0-33.0); MEAN CORPUSCULAR VOLUME 85.6 fl (80.0-96.0); MONO # 0.7 10^3/uL (0.0-0.8); NEUTROPHILS # 5.5 10^3/uL (1.5-8.5); NEUTROPHILS % 66.2 % (36.0-66.0); PLATELET COUNT, AUTOMATED 308 10^3/uL (150-450); RED BLOOD COUNT 4.31 10^6/uL (4.00-5.40); WHITE BLOOD COUNT 8.3 10^3/uL (4.0-10.0)
[2023-02-24 00:51] LABS: INR 1.12
[2023-02-24 00:55] LABS: LIPASE 36 U/L (12-53)
[2023-02-24 00:57] LABS: ALBUMIN 3.4 G/DL (3.2-5.2); ALKALINE PHOSPHATASE 94 U/L (46-116); ALT/SGPT 20 U/L (7.0-40); AST/SGOT 36 U/L (<34); BILIRUBIN,DIRECT < 0.1 MG/DL (<0.4); BILIRUBIN,TOTAL 0.2 MG/DL (0.3-1.2); BLOOD UREA NITROGEN 21 MG/DL (9-23); CARBON DIOXIDE LEVEL 19 MMOL/L (20-31); CHLORIDE LEVEL 107 MMOL/L (98-107); CK-MB VALUE MASS < 1.0 NG/ML (<3.6); CREATININE FOR GFR 0.87 MG/DL (0.55-1.30); GLOMERULAR FILTRATION RATE > 60.0 (>39); GLUCOSE, FASTING 137 MG/DL (74-106); POTASSIUM SERUM 3.5 MMOL/L (3.5-5.1); SODIUM LEVEL 137 MMOL/L (136-145); TOTAL PROTEIN 6.4 G/DL (5.7-8.2)
[2023-02-24 00:58] LABS: CPK CREATINE PHOSPHOKINASE 146 U/L (34-145); MB/CK RELATIVE INDEX 0.68 (< OR =4)
[2023-02-24] MEDS ORDERED: NS 1,000 ML IV ONE (02:25)
[2023-02-24 04:06] LABS: CK-MB VALUE MASS < 1.0 NG/ML (<3.6)
[2023-02-24 04:10] LABS: CPK CREATINE PHOSPHOKINASE 105 U/L (34-145); MB/CK RELATIVE INDEX 0.95 (< OR =4)
[2023-02-24 04:48] VITALS: BP 138/73; TEMP 98.9; O2SAT 97
== END 2023-02-24 04:50 | disposition home or self-care (01) ==
LOC: M ED 23:55 → EDBD 23:55 → M ED 02-24 04:50
DX: J10.89 Influenza due to other identified influenza virus with other manifestations (principal); I45.81 Long QT syndrome; I10 Essential (primary) hypertension; K50.90 Crohn's disease, unspecified, without complications; E55.9 Vitamin D deficiency, unspecified; F17.200 Nicotine dependence, unspecified, uncomplicated; F12.10 Cannabis abuse, uncomplicated; Z88.5 Allergy status to narcotic agent; Z88.8 Allergy status to other drugs, medicaments and biological substances; Z79.899 Other long term (current) drug therapy; Z79.83 Long term (current) use of bisphosphonates; Z79.811 Long term (current) use of aromatase inhibitors

== ENCOUNTER → 2023-03-13 | Outpatient (CLI) | payer MEDICARE | LOC: M PLAIMG 11:51 | PROVIDERS: ATTEND Nurse Practitioner Adult Health | DX: J18.9 Pneumonia, unspecified organism (principal) ==

== ENCOUNTER → 2023-03-26 | Outpatient (CLI) | payer MEDICARE | LOC: M PLAIMG 09:21 | PROVIDERS: ATTEND Nurse Practitioner Adult Health | DX: J18.9 Pneumonia, unspecified organism (principal) ==

== ENCOUNTER → 2023-04-16 | Outpatient (CLI) | payer MEDICARE | LOC: M SOG 07:54 | PROVIDERS: ATTEND Orthopaedic Surgery | DX: Z96.643 Presence of artificial hip joint, bilateral (principal); M25.551 Pain in right hip; M25.552 Pain in left hip ==

== ENCOUNTER → 2023-04-30 | Outpatient (CLI) | payer MEDICARE | LOC: M RAD 10:41 | PROVIDERS: ATTEND Nurse Practitioner Adult Health | DX: M79.89 Other specified soft tissue disorders (principal) ==

== ENCOUNTER → 2023-04-30 | Outpatient (CLI) | payer MEDICARE ==
[2023-04-30 16:21] LABS: HEMATOCRIT 40.4 % (36.0-47.0); HEMOGLOBIN 12.4 g/dl (12.0-15.5); MEAN CORPUSCULAR HGB CONC 30.7 g/dl (32.0-36.5); MEAN CORPUSCULAR VOLUME 87.8 fl (80.0-96.0); PLATELET COUNT, AUTOMATED 363 10^3/uL (150-450); WHITE BLOOD COUNT 7.6 10^3/uL (4.0-10.0)
[2023-04-30 16:26] LABS: ALBUMIN 3.5 G/DL (3.2-5.2); ALKALINE PHOSPHATASE 105 U/L (46-116); ALT/SGPT 27 U/L (7.0-40); AST/SGOT 32 U/L (<34); BILIRUBIN,TOTAL 0.3 MG/DL (0.3-1.2); BLOOD UREA NITROGEN 12 MG/DL (9-23); CALCIUM LEVEL 9.3 MG/DL (8.3-10.6); CARBON DIOXIDE LEVEL 29 MMOL/L (20-31); CHLORIDE LEVEL 107 MMOL/L (98-107); CREATININE FOR GFR 0.67 MG/DL (0.55-1.30); GLOMERULAR FILTRATION RATE > 60.0 (>39); GLUCOSE, FASTING 78 MG/DL (74-106); POTASSIUM SERUM 4.3 MMOL/L (3.5-5.1); SODIUM LEVEL 140 MMOL/L (136-145); TOTAL PROTEIN 6.6 G/DL (5.7-8.2)
[2023-04-30 16:30] LABS: FERRITIN 7.9 NG/ML (7.3-270.7)
[2023-04-30 16:37] LABS: TOTAL 25(OH) VITAMIN D 28.5 NG/ML (20.0-100.0)
[2023-04-30 16:38] LABS: VITAMIN B12 LEVEL 484 PG/ML (211-911)
== END ==
LOC: M WUC 11:21
PROVIDERS: ATTEND Nurse Practitioner Adult Health
DX: E53.8 Deficiency of other specified B group vitamins (principal); E55.9 Vitamin D deficiency, unspecified; K50.90 Crohn's disease, unspecified, without complications; Z98.84 Bariatric surgery status

== ENCOUNTER → 2023-10-15 | Outpatient (CLI) | payer MEDICARE ==
[~2023-10-15] MED LIST changes: +ROSU5TAB40 PO; -ROSU5TAB5 PO
[2023-10-15 11:01] LABS: HEMATOCRIT 39.5 % (36.0-47.0); HEMOGLOBIN 12.6 g/dl (12.0-15.5); MEAN CORPUSCULAR HGB CONC 31.9 g/dl (32.0-36.5); MEAN CORPUSCULAR VOLUME 84.6 fl (80.0-96.0); PLATELET COUNT, AUTOMATED 274 10^3/uL (150-450); RED BLOOD COUNT 4.67 10^6/uL (4.00-5.40); WHITE BLOOD COUNT 5.3 10^3/uL (4.0-10.0)
[2023-10-15 11:26] LABS: TOTAL 25(OH) VITAMIN D 43.1 NG/ML (20.0-100.0)
[2023-10-15 11:27] LABS: FERRITIN 24.2 NG/ML (7.3-270.7); VITAMIN B12 LEVEL 1332 PG/ML (211-911)
[2023-10-15 11:28] LABS: TOTAL IRON BINDING CAPACITY 392 UG/DL (250-425)
[2023-10-15 11:29] LABS: ALBUMIN 3.7 G/DL (3.2-5.2); ALKALINE PHOSPHATASE 110 U/L (46-116); ALT/SGPT 23 U/L (7.0-40); AST/SGOT 31 U/L (<34); BILIRUBIN,TOTAL 0.6 MG/DL (0.3-1.2); BLOOD UREA NITROGEN 13 MG/DL (9-23); CALCIUM LEVEL 9.1 MG/DL (8.3-10.6); CARBON DIOXIDE LEVEL 26 MMOL/L (20-31); CHLORIDE LEVEL 106 MMOL/L (98-107); CHOLESTEROL LEVEL 164 MG/DL (<200); CHOLESTEROL RISK RATIO 3.84 (<5); CREATININE FOR GFR 0.85 MG/DL (0.55-1.30); GLOMERULAR FILTRATION RATE > 60.0 (>39); GLUCOSE, FASTING 96 MG/DL (74-106); HDL CHOLESTEROL 42.6 MG/DL (>40); IRON (FE) 62 UG/DL (50-170); LDL CHOLESTEROL 89.8 MG/DL (<100); NON-HDL-C 121.4 MG/DL; PERCENT SATURATION 15.8 % (13.2-45.0); SODIUM LEVEL 137 MMOL/L (136-145); TOTAL PROTEIN 7.2 G/DL (5.7-8.2); TRIGLYCERIDES LEVEL 158 MG/DL (<150)
== END ==
LOC: M WUC 08:51
PROVIDERS: ATTEND Nurse Practitioner Adult Health
DX: I10 Essential (primary) hypertension (principal); Z98.84 Bariatric surgery status

== ENCOUNTER → 2024-04-29 | Outpatient (CLI) | payer MEDICARE ==
[~2024-04-29] MED LIST changes: -CYCL5TAB PO; +CYCL5TAB4 PO; +GABA-1172 PO; -GABA-282 PO; -ROSU5TAB40 PO; +ROSU5TAB49 PO
[2024-04-29 11:05] LABS: HEMATOCRIT 40.3 % (36.0-47.0); HEMOGLOBIN 12.4 g/dl (12.0-15.5); MEAN CORPUSCULAR HEMOGLOBIN 25.9 pg (27.0-33.0); MEAN CORPUSCULAR HGB CONC 30.8 g/dl (32.0-36.5); MEAN CORPUSCULAR VOLUME 84.1 fl (80.0-96.0); PLATELET COUNT, AUTOMATED 383 10^3/uL (150-450); RED BLOOD COUNT 4.79 10^6/uL (4.00-5.40); WHITE BLOOD COUNT 7.6 10^3/uL (4.0-10.0)
[2024-04-29 11:07] LABS: ALBUMIN 3.7 G/DL (3.2-5.2); ALKALINE PHOSPHATASE 116 U/L (35-104); ALT/SGPT 27 U/L (7.0-40); AST/SGOT 30 U/L (<34); BILIRUBIN,TOTAL 0.5 MG/DL (0.3-1.2); BLOOD UREA NITROGEN 15 MG/DL (9-23); CALCIUM LEVEL 9.1 MG/DL (8.3-10.6); CARBON DIOXIDE LEVEL 28 MMOL/L (20-31); CHLORIDE LEVEL 106 MMOL/L (98-107); CHOLESTEROL LEVEL 183 MG/DL (<200); CREATININE FOR GFR 0.68 MG/DL (0.55-1.30); GLOMERULAR FILTRATION RATE > 60.0 (>39); GLUCOSE, FASTING 104 MG/DL (74-106); HDL CHOLESTEROL 65.3 MG/DL (>40); LDL CHOLESTEROL 87.7 MG/DL (<100); MAGNESIUM LEVEL 2.1 MG/DL (1.8-2.4); NON-HDL-C 117.7 MG/DL; POTASSIUM SERUM 4.5 MMOL/L (3.5-5.1); SODIUM LEVEL 143 MMOL/L (136-145); TOTAL PROTEIN 7.2 G/DL (5.7-8.2); TRIGLYCERIDES LEVEL 150 MG/DL (<150)
[2024-04-29 11:08] LABS: FERRITIN 7.4 NG/ML (7.3-270.7); TOTAL 25(OH) VITAMIN D 36.8 NG/ML (20.0-100.0)
[2024-04-29 11:09] LABS: VITAMIN B12 LEVEL 566 PG/ML (211-911)
== END ==
LOC: M WUC 08:04
PROVIDERS: ATTEND Nurse Practitioner Adult Health
DX: Z98.84 Bariatric surgery status (principal); I10 Essential (primary) hypertension; K50.90 Crohn's disease, unspecified, without complications; E55.9 Vitamin D deficiency, unspecified; E53.8 Deficiency of other specified B group vitamins

== ENCOUNTER → 2024-05-01 | Outpatient (CLI) | payer MEDICARE | LOC: M SOG 07:54 | PROVIDERS: ATTEND Orthopaedic Surgery | DX: M25.551 Pain in right hip (principal); Z96.643 Presence of artificial hip joint, bilateral; M25.552 Pain in left hip ==

== ENCOUNTER → 2024-05-26 | Outpatient (CLI) | payer MEDICARE ==
[2024-05-26 08:50] LABS: BASO % 0.3 % (0.0-1.0); EOS # 0.1 10^3/uL (0.0-0.5); EOS % 1.3 % (0.0-3.0); HEMATOCRIT 37.5 % (36.0-47.0); HEMOGLOBIN 11.4 g/dl (12.0-15.5); LYMPH # 1.6 10^3/uL (1.5-5.0); LYMPH % 18.7 % (24.0-44.0); MEAN CORPUSCULAR HGB CONC 30.4 g/dl (32.0-36.5); MEAN CORPUSCULAR VOLUME 85.4 fl (80.0-96.0); MONO # 0.7 10^3/uL (0.0-0.8); MONO % 7.8 % (2.0-8.0); NEUTROPHILS # 6.2 10^3/uL (1.5-8.5); NEUTROPHILS % 71.7 % (36.0-66.0); PLATELET COUNT, AUTOMATED 353 10^3/uL (150-450); RED BLOOD COUNT 4.39 10^6/uL (4.00-5.40); WHITE BLOOD COUNT 8.6 10^3/uL (4.0-10.0)
[2024-05-26 09:09] LABS: ALBUMIN 3.4 G/DL (3.2-5.2); ALKALINE PHOSPHATASE 108 U/L (35-104); ALT/SGPT 26 U/L (7.0-40); AST/SGOT 23 U/L (<34); BILIRUBIN,TOTAL 0.4 MG/DL (0.3-1.2); BLOOD UREA NITROGEN 13 MG/DL (9-23); CALCIUM LEVEL 9.2 MG/DL (8.3-10.6); CARBON DIOXIDE LEVEL 28 MMOL/L (20-31); CHLORIDE LEVEL 108 MMOL/L (98-107); CREATININE FOR GFR 0.74 MG/DL (0.55-1.30); GLOMERULAR FILTRATION RATE > 60.0 (>39); GLUCOSE, FASTING 92 MG/DL (74-106); POTASSIUM SERUM 4.6 MMOL/L (3.5-5.1); SODIUM LEVEL 145 MMOL/L (136-145); TOTAL PROTEIN 6.7 G/DL (5.7-8.2)
== END ==
LOC: M LAB 07:33
PROVIDERS: ATTEND Internal Medicine Medical Oncology
DX: Z85.3 Personal history of malignant neoplasm of breast (principal)

== ENCOUNTER → 2024-06-16 | Outpatient (CLI) | payer MEDICARE ==
[~2024-06-16] MED LIST changes: +FERR325T81 PO; +GNP250TA9 PO
== END ==
LOC: M WHC 13:49
DX: M81.0 Age-related osteoporosis without current pathological fracture (principal); Z85.3 Personal history of malignant neoplasm of breast

== ENCOUNTER → 2024-07-09 | Outpatient (CLI) | payer MEDICARE ==
[2024-07-09 08:53] LABS: HEMATOCRIT 43.2 % (36.0-47.0); HEMOGLOBIN 13.6 g/dl (12.0-15.5); MEAN CORPUSCULAR HEMOGLOBIN 27.9 pg (27.0-33.0); MEAN CORPUSCULAR HGB CONC 31.5 g/dl (32.0-36.5); MEAN CORPUSCULAR VOLUME 88.5 fl (80.0-96.0); PLATELET COUNT, AUTOMATED 310 10^3/uL (150-450); RED BLOOD COUNT 4.88 10^6/uL (4.00-5.40); WHITE BLOOD COUNT 8.2 10^3/uL (4.0-10.0)
[2024-07-09 09:21] LABS: ALBUMIN 3.4 G/DL (3.2-5.2); BILIRUBIN,TOTAL 0.3 MG/DL (0.3-1.2); CHOLESTEROL RISK RATIO 3.07 (<5); CREATININE FOR GFR 0.71 MG/DL (0.55-1.30); FERRITIN 17.3 NG/ML (7.3-270.7); GLOMERULAR FILTRATION RATE 86.4 (>39); HDL CHOLESTEROL 51.1 MG/DL (>40); LDL CHOLESTEROL 61.1 MG/DL (<100); NON-HDL-C 105.9 MG/DL; PERCENT SATURATION 54.8 % (13.2-45.0); POTASSIUM SERUM 4.4 MMOL/L (3.5-5.1); TOTAL PROTEIN 6.5 G/DL (5.7-8.2)
== END ==
LOC: M LAB 08:10
PROVIDERS: ATTEND Nurse Practitioner Adult Health
DX: Z98.84 Bariatric surgery status (principal); E78.2 Mixed hyperlipidemia; E53.8 Deficiency of other specified B group vitamins; E55.9 Vitamin D deficiency, unspecified

== ENCOUNTER → 2024-11-04 | Outpatient (CLI) | payer MEDICARE | LOC: M SOG 06:51 | PROVIDERS: ATTEND Orthopaedic Surgery | DX: Z96.643 Presence of artificial hip joint, bilateral (principal) ==

== ENCOUNTER → 2024-12-05 | Outpatient (CLI) | payer MEDICARE ==
[~2024-12-05] MED LIST changes: -EZET10TA21 PO; +EZET10TA57 PO
[2024-12-05 10:01] LABS: PLATELET COUNT, AUTOMATED 291 10^3/uL (150-450)
[2024-12-05 10:30] LABS: ALT/SGPT 35.0 U/L (7.0-40); AST/SGOT 33.0 U/L (<34); CALCIUM LEVEL 9.5 MG/DL (8.3-10.6); CARBON DIOXIDE LEVEL 28.0 MMOL/L (20-31); CHLORIDE LEVEL 103.0 MMOL/L (98-107); CHOLESTEROL LEVEL 184.0 MG/DL (<200); CHOLESTEROL RISK RATIO 3.5 (<5); CREATININE FOR GFR 0.73 MG/DL (0.55-1.30); GLOMERULAR FILTRATION RATE 83.6 (>39); LDL CHOLESTEROL 97.1 MG/DL (<100); MAGNESIUM LEVEL 2.1 MG/DL (1.8-2.4); NON-HDL-C 131.5 MG/DL; POTASSIUM SERUM 4.4 MMOL/L (3.5-5.1); SODIUM LEVEL 141.0 MMOL/L (136-145); TRIGLYCERIDES LEVEL 172.0 MG/DL (<150)
[2024-12-05 10:34] LABS: TOTAL 25(OH) VITAMIN D 41.9 NG/ML (20.0-100.0); VITAMIN B12 LEVEL 932.0 PG/ML (211-911)
== END ==
LOC: M LAB 09:15
PROVIDERS: ATTEND Nurse Practitioner Adult Health
DX: Z00.00 Encounter for general adult medical examination without abnormal findings (principal); D64.9 Anemia, unspecified; Z98.84 Bariatric surgery status; E78.2 Mixed hyperlipidemia; E53.8 Deficiency of other specified B group vitamins